=== PATIENT | female | born 1950 ===

== ENCOUNTER 2017-12-31 08:30 | Day surgery (SDC) | payer OTHER | END 2017-12-31 14:15 | disposition home or self-care (01) | LOC: CIR.AMB 08:30 → AMB-ENDOS 08:30 → CIR.AMB 15:30 | DX: R19.4 Change in bowel habit (principal); R15.9 Full incontinence of feces ==

== ENCOUNTER 2021-11-14 16:40 | Inpatient (IN) | payer OTHER ==
[~2021-11-14] VITALS: Ht 154.9 cm; Wt 91.2 kg
[~2021-11-14 16:40] MED LIST: CLONAZEP PO; GRALISE600 MG PO; PAXIL30 MG PO; REMERON30 MG PO; RESTOR PO
[2021-11-16] MEDS ORDERED: FLONASE16 GM (08:55)
[2021-11-16] MEDS ORDERED: CLONAZEPAM1 MG (08:55)
[2021-11-16] MEDS ORDERED: PROAIR HFA8.5 GM (08:55)
[2021-11-16] MEDS ORDERED: VALSARTAN-HCTZ1 EAC3 (08:55)
[2021-11-16] MEDS ORDERED: PRAVASTATIN SOD40 MG (08:56)
[2021-11-16] MEDS ORDERED: RESTORIL30 MG (08:56)
[2021-11-16] MEDS ORDERED: MELOXICAM15 MG (08:56)
[2021-11-16] MEDS ORDERED: AMLODIPINE BESYL5 MG (08:56)
[2021-11-16] MEDS ORDERED: IBUPROFEN600 MG (08:56)
[2021-11-16] MEDS ORDERED: SIMVASTATIN20 MG (08:56)
[2021-11-16] MEDS ORDERED: PANTOPRAZOLE SO40 MG (08:56)
[2021-11-16] MEDS ORDERED: HYDROCHLOROTH12.5 MG (08:56)
[2021-11-16] MEDS ORDERED: BACLOFEN20 MG (08:56)
[2021-11-16] MEDS ORDERED: DICLOFENAC SOD100 GM (08:56)
[2021-11-17] MEDS ORDERED: ULTRACET PO (08:14)
== END 2021-11-17 11:04 | disposition home or self-care (01) | DRG 349 ==
LOC: O/R 11-16 05:33 → SURH 11-16 05:33 → SURG 11-16 11:40 → SURH 11-16 13:29
PROVIDERS: ADMIT Surgery; ATTEND Surgery
PROC: 3E0T3BZ Introduction of Anesthetic Agent into Peripheral Nerves and Plexi, Percutaneous Approach (ICD-10-PCS; 2021-11-16)
PROC: 0DBP7ZZ Excision of Rectum, Via Natural or Artificial Opening (ICD-10-PCS; principal; 2021-11-16 12:30)
DX: D12.8 Benign neoplasm of rectum (principal); Z20.822 Contact with and (suspected) exposure to COVID-19